=== PATIENT | female | born 1990 | race Caucasian/White ===

== ENCOUNTER 2017-06-25 18:04 | Emergency (ER) | payer MEDICAID ==
[~2017-06-25] VITALS: Ht 170.2 cm; Wt 53.5 kg
[~2017-06-25 18:04] MED LIST: CLIN150C99 PO; CYCL-1 PO; HYDR-569 PO; NO HOME MEDS; PENI250T2 PO
[2017-06-25 18:27] VITALS: BP 144/89
[2017-06-25] MEDS ORDERED: PENI500T2 PO (21:24)
[2017-06-25] MEDS ORDERED: CHLO118M PO (21:24)
== END 2017-06-25 21:49 | disposition home or self-care (01) ==
LOC: ER 18:05
DX: K04.7 Periapical abscess without sinus (principal); F19.10 Other psychoactive substance abuse, uncomplicated; F15.10 Other stimulant abuse, uncomplicated; J45.909 Unspecified asthma, uncomplicated; G89.29 Other chronic pain; F17.210 Nicotine dependence, cigarettes, uncomplicated; Z56.0 Unemployment, unspecified; Z88.1 Allergy status to other antibiotic agents; Z79.899 Other long term (current) drug therapy
CPT/HCPCS: 41800; 99283

== ENCOUNTER 2017-08-12 17:41 | Emergency (ER) | payer MEDICAID ==
[~2017-08-12] VITALS: Ht 170.2 cm; Wt 61.0 kg
[~2017-08-12 17:41] MED LIST changes: +CHLO118M PO; -PENI250T2 PO
[2017-08-12 17:54] VITALS: BP 124/81
[2017-08-12] MEDS ORDERED: PENI500T2 PO (23:53)
[2017-08-12] MEDS ORDERED: IBUP-1984 PO (23:53)
== END 2017-08-12 20:13 | disposition left against medical advice (07) ==
LOC: ER 17:41
DX: K04.7 Periapical abscess without sinus (principal); Z53.21 Procedure and treatment not carried out due to patient leaving prior to being seen by health care provider

== ENCOUNTER 2017-08-12 23:29 | Emergency (ER) | payer MEDICAID ==
[~2017-08-12] VITALS: Ht 170.2 cm; Wt 60.0 kg
[2017-08-12] MEDS ORDERED: PENI500T2 PO (23:53)
[2017-08-12] MEDS ORDERED: IBUP-1984 PO (23:53)
[2017-08-12] MEDS ORDERED: ibuprofen tablet 400 MG TABLET PO ONE (23:55)
[2017-08-12] MEDS ORDERED: penicillin V potassium 500mg tablet PO ONE (23:55)
[2017-08-13 00:37] VITALS: BP 136/98
== END 2017-08-13 00:38 | disposition home or self-care (01) ==
LOC: ER 23:30
DX: K08.89 Other specified disorders of teeth and supporting structures (principal); G89.29 Other chronic pain; J45.909 Unspecified asthma, uncomplicated; F15.90 Other stimulant use, unspecified, uncomplicated; Z88.1 Allergy status to other antibiotic agents; Z79.899 Other long term (current) drug therapy; Z56.0 Unemployment, unspecified
CPT/HCPCS: 99283

== ENCOUNTER 2017-12-03 14:37 | Emergency (ER) | payer MEDICAID ==
[~2017-12-03] VITALS: Ht 170.2 cm; Wt 60.0 kg
[~2017-12-03 14:37] MED LIST changes: +HYDR-4383 PO; -HYDR-569 PO
[2017-12-03 14:48] VITALS: BP 128/72
[2017-12-03] MEDS ORDERED: SULF1TAB49 PO (15:03)
== END 2017-12-03 15:11 | disposition home or self-care (01) ==
LOC: ER 14:37
DX: L02.31 Cutaneous abscess of buttock (principal); L03.317 Cellulitis of buttock; J45.909 Unspecified asthma, uncomplicated; G89.29 Other chronic pain; F15.90 Other stimulant use, unspecified, uncomplicated; Z88.1 Allergy status to other antibiotic agents; Z79.2 Long term (current) use of antibiotics; Z79.899 Other long term (current) drug therapy; Z56.0 Unemployment, unspecified
CPT/HCPCS: 99283

== ENCOUNTER 2018-01-03 17:40 | Emergency (ER) | payer MEDICAID ==
[~2018-01-03] VITALS: Ht 170.2 cm; Wt 62.3 kg
[~2018-01-03 17:40] MED LIST changes: +CEPH-572 PO; +POLOS RIGHTEYE
[2018-01-03 18:01] VITALS: BP 119/76
== END 2018-01-03 18:49 | disposition left against medical advice (07) ==
LOC: ER 17:41
DX: H10.023 Other mucopurulent conjunctivitis, bilateral (principal); Z53.21 Procedure and treatment not carried out due to patient leaving prior to being seen by health care provider

== ENCOUNTER 2018-02-02 19:12 | Emergency (ER) | payer MEDICAID ==
[~2018-02-02] VITALS: Ht 170.2 cm; Wt 46.9 kg
[~2018-02-02 19:12] MED LIST changes: -CEPH-572 PO; -POLOS RIGHTEYE
[2018-02-02 19:19] VITALS: BP 137/83
[2018-02-02] MEDS ORDERED: PENI500T2 PO (21:10)
== END 2018-02-02 21:14 | disposition home or self-care (01) ==
LOC: ER 19:12
DX: K08.89 Other specified disorders of teeth and supporting structures (principal); J45.909 Unspecified asthma, uncomplicated; G89.29 Other chronic pain; F15.90 Other stimulant use, unspecified, uncomplicated; Z56.0 Unemployment, unspecified; Z88.1 Allergy status to other antibiotic agents; Z79.899 Other long term (current) drug therapy
CPT/HCPCS: 99283

== ENCOUNTER 2018-04-04 12:28 | Emergency (ER) | payer MEDICAID ==
[~2018-04-04] VITALS: Ht 170.2 cm; Wt 61.4 kg
[2018-04-04 12:54] VITALS: BP 135/91
[2018-04-04] MEDS ORDERED: CHLO473M3 PO (13:50)
[2018-04-04] MEDS ORDERED: TRAM50TA2 PO (13:50)
[2018-04-04] MEDS ORDERED: AMOX-580 PO (13:50)
== END 2018-04-04 14:01 | disposition home or self-care (01) ==
LOC: ER 12:29
DX: K04.7 Periapical abscess without sinus (principal); F17.210 Nicotine dependence, cigarettes, uncomplicated; Z56.0 Unemployment, unspecified; Z88.1 Allergy status to other antibiotic agents
CPT/HCPCS: 99283

== ENCOUNTER 2018-07-19 23:11 | Emergency (ER) | payer MEDICAID ==
[~2018-07-19 23:11] MED LIST changes: +CHLO473M3 PO
--- NOTE | 2018-07-19 23:55 | NUR ---
No response from lobby after attempting to triage 3 times. Number on file called received message that this is a nonworking number. Dr. GARCIA informed.
== END 2018-07-19 23:57 | disposition left against medical advice (07) ==
LOC: ER 23:12
DX: M25.571 Pain in right ankle and joints of right foot (principal); Z53.21 Procedure and treatment not carried out due to patient leaving prior to being seen by health care provider

== ENCOUNTER 2018-09-09 03:26 | Emergency (ER) | payer MEDICAID ==
[~2018-09-09] VITALS: Ht 167.6 cm; Wt 68.0 kg
[2018-09-09 03:30] VITALS: BP 150/96
[2018-09-09] MEDS ORDERED: CLIN150C8 PO (03:38)
--- NOTE | 2018-09-09 03:44 | NUR ---
Seen here for a dental abcess a month ago. "The penicillin didn't help, I took it all." The abcess popped. That is why I'm here.
--- NOTE | 2018-09-09 04:03 | NUR ---
Patient given a nurse teaching about dangers of meth. Instructions for antibiotic use also given. Patient declines a meal for being homeless. Patient denies an offer of transportation. She thanks this business writer for the RX and departs the ED.
== END 2018-09-09 04:11 | disposition home or self-care (01) ==
LOC: ER 03:27
DX: K04.7 Periapical abscess without sinus (principal); F15.10 Other stimulant abuse, uncomplicated; J45.909 Unspecified asthma, uncomplicated; G89.29 Other chronic pain; F10.99 Alcohol use, unspecified with unspecified alcohol-induced disorder; Z56.0 Unemployment, unspecified; Z88.1 Allergy status to other antibiotic agents; Z79.899 Other long term (current) drug therapy; Y90.9 Presence of alcohol in blood, level not specified
CPT/HCPCS: 99283

== ENCOUNTER 2018-10-01 10:01 | Emergency (ER) | payer MEDICAID ==
[~2018-10-01 10:01] MED LIST changes: +CLIN150C8 PO
== END 2018-10-01 11:51 | disposition left against medical advice (07) ==
LOC: ER 10:01
DX: S60.569A Insect bite (nonvenomous) of unspecified hand, initial encounter (principal); Z53.21 Procedure and treatment not carried out due to patient leaving prior to being seen by health care provider; W57.XXXA Bitten or stung by nonvenomous insect and other nonvenomous arthropods, initial encounter; Y93.89 Activity, other specified; Y92.89 Other specified places as the place of occurrence of the external cause; Y99.8 Other external cause status

== ENCOUNTER 2018-10-05 01:36 | Emergency (ER) | payer MEDICAID ==
--- NOTE | 2018-10-05 01:40 | NUR ---
Registration reports that Pt registered with another then left lobby. will attempt to call back 2 more times.
--- NOTE | 2018-10-05 02:30 | NUR ---
DR GARCIA INFORMED OF LBT
== END 2018-10-05 02:30 | disposition left against medical advice (07) ==
LOC: ER 01:37
DX: T63.301A Toxic effect of unspecified spider venom, accidental (unintentional), initial encounter (principal); Z53.21 Procedure and treatment not carried out due to patient leaving prior to being seen by health care provider; Y92.89 Other specified places as the place of occurrence of the external cause

== ENCOUNTER 2018-10-07 04:00 | Emergency (ER) | payer MEDICAID ==
[~2018-10-07] VITALS: Ht 167.6 cm; Wt 59.1 kg
[2018-10-07 04:08] VITALS: BP 133/102
[2018-10-07] MEDS ORDERED: SULF1TAB49 PO (04:46)
[2018-10-07] MEDS ORDERED: TETanus/Pertussis (Acell)/Diphther VAC/PF (Tdap-Adult) 0.5ml syringe IM ONE (04:50)
== END 2018-10-07 04:54 | disposition home or self-care (01) ==
LOC: ER 04:00
DX: T63.301A Toxic effect of unspecified spider venom, accidental (unintentional), initial encounter (principal); J45.909 Unspecified asthma, uncomplicated; G89.29 Other chronic pain; F15.90 Other stimulant use, unspecified, uncomplicated; Z56.0 Unemployment, unspecified; Z88.1 Allergy status to other antibiotic agents; Z79.899 Other long term (current) drug therapy; Y92.89 Other specified places as the place of occurrence of the external cause
CPT/HCPCS: 99283

== ENCOUNTER 2018-10-17 05:10 | Emergency (ER) | payer MEDICAID ==
[~2018-10-17] VITALS: Ht 170.2 cm; Wt 61.4 kg
[~2018-10-17 05:10] MED LIST changes: +SULF1TAB49 PO
[2018-10-17 06:50] VITALS: BP 140/93
[2018-10-17] MEDS ORDERED: acetaminophen 325mg tablet PO ONE (06:50)
[2018-10-17] MEDS ORDERED: sulfamethoxazole/trimethoprim DS (800/160mg) tablet PO ONE (06:50)
[2018-10-17] MEDS ORDERED: naproxen 500mg tablet PO ONE (06:50)
[2018-10-17] MEDS ORDERED: SULF1TAB48 PO (06:51)
[2018-10-17] MEDS ORDERED: TETanus/Pertussis (Acell)/Diphther VAC/PF (Tdap-Adult) 0.5ml syringe IM ONE (06:55)
== END 2018-10-17 07:40 | disposition home or self-care (01) ==
LOC: ER 05:11
DX: L03.115 Cellulitis of right lower limb (principal); L03.114 Cellulitis of left upper limb; J45.909 Unspecified asthma, uncomplicated; G89.29 Other chronic pain; F17.210 Nicotine dependence, cigarettes, uncomplicated; F15.90 Other stimulant use, unspecified, uncomplicated; F10.99 Alcohol use, unspecified with unspecified alcohol-induced disorder; Z71.6 Tobacco abuse counseling; Z56.0 Unemployment, unspecified; Z88.1 Allergy status to other antibiotic agents; Z79.899 Other long term (current) drug therapy; Y90.9 Presence of alcohol in blood, level not specified
CPT/HCPCS: 99283; 99406

== ENCOUNTER 2019-02-11 03:08 | Emergency (ER) | payer MEDICAID ==
[~2019-02-11] VITALS: Ht 167.6 cm; Wt 63.6 kg
[~2019-02-11 03:08] MED LIST changes: -SULF1TAB49 PO
[2019-02-11 04:10] LABS: URINE HCG NEGATIVE (NEG)
[2019-02-11 04:17] LABS: URINE AMPHETAMINE SCREEN POSITIVE (Neg); URINE BARBITUATE SCREEN NEGATIVE (Neg); URINE BENZODIAZEPINES SCREEN NEGATIVE (Neg); URINE CANNABINOID SCREEN NEGATIVE (Neg); URINE COCAINE SCREEN NEGATIVE (Neg); URINE METHADONE SCREEN NEGATIVE (Neg); URINE OPIATE SCREEN NEGATIVE (Neg); URINE PHENCYCLIDINE SCREEN NEGATIVE (Neg)
[2019-02-11 04:24] LABS: PARTIAL THROMBOPLASTIN TIME 28 SECONDS (22-32)
[2019-02-11 04:26] LABS: CLARITY,URINE CLEAR (Clear); COLOR,URINE YELLOW (Yellow); GLUCOSE, URINE NEGATIVE (Neg); KETONES,URINE NEGATIVE (Neg); LEUKOCYTE ESTERASE ,URINE NEGATIVE (Neg); NITRITES, URINE NEGATIVE (Neg); OCCULT BLOOD,URINE MODERATE (Neg); PROTEIN,URINE NEGATIVE (Neg); UROBILINOGEN,URINE 0.2 E.U/dL (0.2-1.0)
[2019-02-11 04:27] LABS: BASOPHILS # (AUTO) 0.1 X10'3 (0-0.2); BASOPHILS % (AUTO) 0.5 % (0-1); EOSINOPHILS # (AUTO) 0.1 X10'3 (0-0.9); EOSINOPHILS % (AUTO) 1.3 % (0-6); HEMATOCRIT 37.5 % (35.0-45.0); HEMOGLOBIN 12.6 g/dl (12.0-16.0); LYMPHOCYTES # (AUTO) 1.3 X10'3 (1.1-4.8); LYMPHOCYTES % (AUTO) 12.9 % (21-51); MEAN CORPUSCULAR HEMOGLOBIN 29.3 PG (27.0-31.0); MEAN CORPUSCULAR HGB CONC 33.7 g/dL (33.0-36.5); MEAN CORPUSCULAR VOLUME 86.7 FL (78-98); MEAN PLATELET VOLUME 9.1 FL (7.4-10.4); MONOCYTES # (AUTO) 0.7 X10'3 (0-0.9); MONOCYTES % (AUTO) 7.2 % (2-12); NEUTROPHILS % (AUTO) 78.1 % (42-75); PLATELET COUNT 359 X10'3 (140-440); RED BLOOD COUNT 4.32 X10'6 (4.20-5.60); WHITE BLOOD COUNT 10.2 X10'3 (4.5-11.0)
[2019-02-11 04:29] LABS: UA COLLECTION TYPE CLN CATCH MIDSTREAM
[2019-02-11 04:34] LABS: ALANINE AMINOTRANSFERASE 39 U/L (12-78); ALBUMIN 3.2 G/DL (3.4-5.0); ALBUMIN/GLOBULIN RATIO 0.7 (1.1-1.5); ALKALINE PHOSPHATASE 119 IU/L (46-116); ANION GAP 11 (8-16); ASPARTATE AMINO TRANSFERASE 45 U/L (10-37); BILIRUBIN,TOTAL 0.2 MG/DL (0.1-1.0); BLOOD UREA NITROGEN 13 MG/DL (7-18); BUN/CREATININE RATIO 16.9 (6.6-38.0); CALCIUM 8.2 MG/DL (8.5-10.1); CHLORIDE 103 MMOL/L (99-107); CREATININE 0.77 MG/DL (0.40-0.90); GLUCOSE 96 MG/DL (70-104); SODIUM 139 MMOL/L (135-145); TOTAL CARBON DIOXIDE 24.6 MMOL/L (24-32); TOTAL PROTEIN 7.5 G/DL (6.4-8.2); eGFR 87 ML/MIN
[2019-02-11 04:37] LABS: POTASSIUM 3.6 MMOL/L (3.5-5.1)
[2019-02-11 04:40] LABS: CREATINE KINASE 442 U/L (26-192); ETHANOL < 0.010 GM/DL (0.0-0.010); MAGNESIUM 1.7 MG/DL (1.5-2.4)
[2019-02-11 04:41] LABS: ACETAMINOPHEN < 2.0 UG/ML (10-30)
[2019-02-11 04:41] LABS: BACTERIA,URINE 1+ /HPF (Neg); MUCUS STRANDS FEW /LPF (Neg); SQUAMOUS EPITHELIAL CELL,UR MODERATE /LPF (FEW); WBC,URINE 0-4 /HPF (0-4)
--- NOTE | 2019-02-11 06:00 | NUR ---
3 HR TROPONIN DRAWN AND SENT TO LAB
[2019-02-11 06:59] VITALS: BP 128/75
== END 2019-02-11 07:51 | disposition home or self-care (01) ==
LOC: ER 03:09
DX: R07.89 Other chest pain (principal); F15.10 Other stimulant abuse, uncomplicated; J45.909 Unspecified asthma, uncomplicated; G89.29 Other chronic pain; Z56.0 Unemployment, unspecified; Z88.1 Allergy status to other antibiotic agents; Z79.899 Other long term (current) drug therapy
CPT/HCPCS: 36415; 80053; 80305; 80320; 80329; 81001; 81025; 82550; 83735; 83874; 84484; 85025; 85610; 85730; 93005; 99284

== ENCOUNTER 2019-07-16 23:48 | Emergency (ER) | payer MEDICAID, OTHER ==
[~2019-07-16] VITALS: Ht 167.6 cm; Wt 68.2 kg
[~2019-07-16 23:48] MED LIST changes: -CHLO118M PO; -CHLO473M3 PO; -CLIN150C8 PO; -CLIN150C99 PO; -CYCL-1 PO; -HYDR-4383 PO
[2019-07-16 23:53] VITALS: BP 154/110
[2019-07-17] MEDS ORDERED: PENI500T2 PO (00:09)
== END 2019-07-17 00:15 | disposition home or self-care (01) ==
LOC: ER 23:49
DX: K02.9 Dental caries, unspecified (principal); K08.89 Other specified disorders of teeth and supporting structures; J45.909 Unspecified asthma, uncomplicated; G89.29 Other chronic pain; F17.200 Nicotine dependence, unspecified, uncomplicated; F15.90 Other stimulant use, unspecified, uncomplicated; Z72.89 Other problems related to lifestyle; Z56.0 Unemployment, unspecified; Z88.1 Allergy status to other antibiotic agents; Z79.2 Long term (current) use of antibiotics
CPT/HCPCS: 99283

== ENCOUNTER 2020-03-21 22:14 | Emergency (ER) | payer MEDICAID ==
[~2020-03-21] VITALS: Ht 170.2 cm; Wt 75.0 kg
[2020-03-21] MEDS ORDERED: CefTRIAXone 1000mg IM Kit (w/lidocaine diluent) IM ONE (22:25)
[2020-03-21] MEDS ORDERED: metroNIDAZOLE 500mg tablet PO ONE (22:25)
[2020-03-21] MEDS ORDERED: DOXY100C76 PO (22:26)
[2020-03-21 22:40] LABS: CLARITY,URINE CLEAR (Clear); COLOR,URINE YELLOW (Yellow); GLUCOSE, URINE NEGATIVE (Neg); KETONES,URINE NEGATIVE (Neg); LEUKOCYTE ESTERASE ,URINE SMALL (Neg); NITRITES, URINE NEGATIVE (Neg); OCCULT BLOOD,URINE NEGATIVE (Neg); PROTEIN,URINE NEGATIVE (Neg); UROBILINOGEN,URINE 0.2 E.U/dL (0.2-1.0)
[2020-03-21 22:43] LABS: UA COLLECTION TYPE CLN CATCH MIDSTREAM
[2020-03-21 22:46] LABS: SQUAMOUS EPITHELIAL CELL,UR FEW /LPF (FEW); WBC,URINE 0-4 /HPF (0-4)
[2020-03-21 22:47] LABS: BACTERIA,URINE FEW /HPF (Neg); RBC,URINE NONE SEEN /HPF (0-2)
[2020-03-21] MEDS ORDERED: penicillin G benzathine 1.2 million unit/2ml syringe IM ONE (22:55)
[2020-03-21 23:06] VITALS: BP 159/108
--- NOTE | 2020-03-21 23:15 | NUR ---
PT LEFT BEFORE LAB WAS DRAWN. TRIED ALL THE NUMBERS LISTED, BUT THEY WERE INCORRECT.
== END 2020-03-21 23:07 | disposition home or self-care (01) ==
LOC: ER 22:15
DX: A64 Unspecified sexually transmitted disease (principal); I10 Essential (primary) hypertension; J45.909 Unspecified asthma, uncomplicated; G89.29 Other chronic pain; F15.90 Other stimulant use, unspecified, uncomplicated; Z72.89 Other problems related to lifestyle; Z56.0 Unemployment, unspecified; Z88.1 Allergy status to other antibiotic agents; Z79.2 Long term (current) use of antibiotics
CPT/HCPCS: 36415; 81001; 87088; 87491; 87591; 96372; 99284; J0561; J0696; J3490

== ENCOUNTER 2020-05-20 21:46 | Emergency (ER) | payer MEDICAID ==
[~2020-05-20] VITALS: Ht 170.2 cm; Wt 75.0 kg
[2020-05-20 22:11] VITALS: BP 117/59
== END 2020-05-20 23:57 | disposition left against medical advice (07) ==
LOC: ER 21:47
DX: M54.9 Dorsalgia, unspecified (principal); Z53.21 Procedure and treatment not carried out due to patient leaving prior to being seen by health care provider

== ENCOUNTER 2020-05-24 01:10 | Emergency (ER) | payer MEDICAID ==
[~2020-05-24] VITALS: Ht 170.2 cm; Wt 72.7 kg
--- NOTE | 2020-05-24 01:21 | NUR ---
INFORMED THE SEVERITY OF THE BRUISE.
[2020-05-24] MEDS ORDERED: acetaminophen 325mg tablet PO ONE (01:40)
[2020-05-24] MEDS ORDERED: ibuprofen 200mg tablet PO ONE (01:40)
[2020-05-24] MEDS ORDERED: ibuprofen tablet 400 MG TABLET PO ONE (01:40)
[2020-05-24 01:53] VITALS: BP 145/91
== END 2020-05-24 01:54 | disposition home or self-care (01) ==
LOC: ER 01:11
DX: S30.0XXA Contusion of lower back and pelvis, initial encounter (principal); J45.909 Unspecified asthma, uncomplicated; G89.29 Other chronic pain; F15.90 Other stimulant use, unspecified, uncomplicated; Z72.89 Other problems related to lifestyle; Z56.0 Unemployment, unspecified; Z88.1 Allergy status to other antibiotic agents; X58.XXXA Exposure to other specified factors, initial encounter; Y93.89 Activity, other specified; Y92.89 Other specified places as the place of occurrence of the external cause; Y99.8 Other external cause status
CPT/HCPCS: 99283

== ENCOUNTER 2020-07-24 23:01 | Emergency (ER) | payer MEDICAID ==
[~2020-07-24] VITALS: Ht 170.2 cm; Wt 77.7 kg
[2020-07-24 23:05] VITALS: BP 159/112
== END 2020-07-25 01:48 | disposition left against medical advice (07) ==
LOC: ER 23:01
DX: K04.7 Periapical abscess without sinus (principal); Z53.21 Procedure and treatment not carried out due to patient leaving prior to being seen by health care provider

== ENCOUNTER 2020-08-05 00:21 | Emergency (ER) | payer MEDICAID ==
[~2020-08-05] VITALS: Ht 170.2 cm; Wt 77.3 kg
[2020-08-05 00:25] VITALS: BP 125/102
[2020-08-05] MEDS ORDERED: dexamethasone sod phosphate 10mg/ml inj PO STA (00:50)
== END 2020-08-05 01:26 | disposition home or self-care (01) ==
LOC: ER 00:22
DX: L42 Pityriasis rosea (principal); R21 Rash and other nonspecific skin eruption; J45.909 Unspecified asthma, uncomplicated; G89.29 Other chronic pain; F15.90 Other stimulant use, unspecified, uncomplicated; F17.210 Nicotine dependence, cigarettes, uncomplicated; Z56.0 Unemployment, unspecified; Z72.89 Other problems related to lifestyle; Z88.1 Allergy status to other antibiotic agents
CPT/HCPCS: 99283; J1100

== ENCOUNTER 2020-10-30 14:01 | Emergency (ER) | payer MEDICAID ==
[~2020-10-30] VITALS: Ht 167.6 cm; Wt 72.7 kg
[2020-10-30 15:37] VITALS: BP 145/112
== END 2020-10-30 17:57 | disposition home or self-care (01) ==
LOC: ER 14:01
DX: T40.411A Poisoning by fentanyl or fentanyl analogs, accidental (unintentional), initial encounter (principal); J45.909 Unspecified asthma, uncomplicated; G89.29 Other chronic pain; F15.90 Other stimulant use, unspecified, uncomplicated; Z56.0 Unemployment, unspecified; Z88.1 Allergy status to other antibiotic agents; Y92.89 Other specified places as the place of occurrence of the external cause
CPT/HCPCS: 71045; 93005; 99283

== ENCOUNTER 2020-11-26 14:38 | Emergency (ER) | payer MEDICAID ==
[~2020-11-26] VITALS: Ht 170.2 cm; Wt 75.0 kg
[2020-11-26 14:53] VITALS: BP 154/103
[2020-11-26] MEDS ORDERED: MUPI22OI30 TOP (14:53)
== END 2020-11-26 15:04 | disposition home or self-care (01) ==
LOC: ER 14:38
DX: L03.115 Cellulitis of right lower limb (principal); L03.116 Cellulitis of left lower limb; L03.012 Cellulitis of left finger
CPT/HCPCS: 99283

== ENCOUNTER 2021-06-19 22:10 | Emergency (ER) | payer MEDICAID ==
[~2021-06-19] VITALS: Ht 170.2 cm; Wt 68.2 kg
[~2021-06-19 22:10] MED LIST changes: +naloxone 2mg/2ml inj ONE
[2021-06-19 22:41] LABS: ALANINE AMINOTRANSFERASE 166 U/L (12-78); ALBUMIN 3.5 G/DL (3.4-5.0); ALBUMIN/GLOBULIN RATIO 0.8 (1.1-1.5); ALKALINE PHOSPHATASE 113 IU/L (46-116); ANION GAP 11 (8-16); ASPARTATE AMINO TRANSFERASE 151 U/L (10-37); BILIRUBIN,TOTAL 0.2 MG/DL (0.1-1.0); BLOOD UREA NITROGEN 18 MG/DL (7-18); BUN/CREATININE RATIO 17.8 (6.6-38.0); CALCIUM 8.6 MG/DL (8.5-10.1); CHLORIDE 108 MMOL/L (99-107); CREATININE 1.01 MG/DL (0.40-0.90); GLUCOSE 147 MG/DL (70-104); SODIUM 143 MMOL/L (135-145); TOTAL CARBON DIOXIDE 23.9 MMOL/L (24-32); TOTAL PROTEIN 7.9 G/DL (6.4-8.2); eGFR 63 ML/MIN
[2021-06-19 22:50] LABS: BETA HCG,QUANTITATIVE < 1.0 mIU/ml; MAGNESIUM 2.2 MG/DL (1.5-2.4)
[2021-06-19 22:51] LABS: POTASSIUM 4.1 MMOL/L (3.5-5.1)
[2021-06-19 22:53] LABS: BASOPHILS # (AUTO) 0.1 X10'3 (0-0.2); BASOPHILS % (AUTO) 0.8 % (0-1); EOSINOPHILS # (AUTO) 0.1 X10'3 (0-0.9); EOSINOPHILS % (AUTO) 1.3 % (0-6); HEMATOCRIT 41.7 % (35.0-45.0); HEMOGLOBIN 13.9 g/dl (12.0-16.0); LYMPHOCYTES # (AUTO) 4.3 X10'3 (1.1-4.8); LYMPHOCYTES % (AUTO) 40.2 % (21-51); MEAN CORPUSCULAR HEMOGLOBIN 30.5 PG (27.0-31.0); MEAN CORPUSCULAR HGB CONC 33.3 g/dL (33.0-36.5); MEAN CORPUSCULAR VOLUME 91.6 FL (78-98); MEAN PLATELET VOLUME 8.8 FL (7.4-10.4); MONOCYTES # (AUTO) 1.2 X10'3 (0-0.9); MONOCYTES % (AUTO) 11.1 % (2-12); NEUTROPHILS % (AUTO) 46.6 % (42-75); PLATELET COUNT 446 X10'3 (140-440); RED BLOOD COUNT 4.55 X10'6 (4.20-5.60); RED CELL DISTRIBUTION WIDTH 13.3 % (11.5-14.5); WHITE BLOOD COUNT 10.7 X10'3 (4.5-11.0)
--- NOTE | 2021-06-20 02:09 | NUR ---
Pt resting comfortably in bed. Pt A+Ox4. RN brought pt water.
[2021-06-20] MEDS ORDERED: NALO4SPR BOTHNARES (02:23)
[2021-06-20 02:56] VITALS: BP 115/76
--- NOTE | 2021-06-20 03:14 | NUR ---
RN called i for pt. Wait time is 30-45 minutes.
== END 2021-06-20 03:19 | disposition home or self-care (01) ==
LOC: ER 22:12
DX: T40.411A Poisoning by fentanyl or fentanyl analogs, accidental (unintentional), initial encounter (principal); R40.4 Transient alteration of awareness; F11.10 Opioid abuse, uncomplicated; J45.909 Unspecified asthma, uncomplicated; G89.29 Other chronic pain; F15.90 Other stimulant use, unspecified, uncomplicated; Z56.0 Unemployment, unspecified; Z72.89 Other problems related to lifestyle; Z88.1 Allergy status to other antibiotic agents; Z79.899 Other long term (current) drug therapy; Y92.89 Other specified places as the place of occurrence of the external cause
CPT/HCPCS: 36415; 71045; 80053; 83735; 84484; 84702; 85025; 93005; 99285; J2310

== ENCOUNTER 2022-08-28 05:10 | Emergency (ER) | payer MEDICAID ==
[~2022-08-28 05:10] MED LIST changes: +NALO4SPR BOTHNARES; -naloxone 2mg/2ml inj ONE
--- NOTE | 2022-08-28 06:16 | NUR ---
nil at this time.
== END 2022-08-28 06:57 | disposition left against medical advice (07) ==
LOC: ER 05:12
DX: K04.7 Periapical abscess without sinus (principal); Z53.21 Procedure and treatment not carried out due to patient leaving prior to being seen by health care provider

== ENCOUNTER 2022-08-30 01:34 | Emergency (ER) | payer MEDICAID ==
[~2022-08-30] VITALS: Ht 167.6 cm; Wt 64.8 kg
[2022-08-30 01:38] VITALS: BP 126/87
[2022-08-30 03:09] LABS: URINE HCG NEGATIVE (NEG)
[2022-08-30] MEDS ORDERED: DOXY-356 PO (03:19)
== END 2022-08-30 03:40 | disposition home or self-care (01) ==
LOC: ER 01:35
DX: Z20.2 Contact with and (suspected) exposure to infections with a predominantly sexual mode of transmission (principal); J45.909 Unspecified asthma, uncomplicated; F17.200 Nicotine dependence, unspecified, uncomplicated; F15.90 Other stimulant use, unspecified, uncomplicated; Z91.041 Radiographic dye allergy status; Z88.1 Allergy status to other antibiotic agents; Z56.0 Unemployment, unspecified
CPT/HCPCS: 81025; 99283